=== PATIENT | female | born 1960 | race Caucasian/White ===

== ENCOUNTER 2018-07-06 21:17 | Emergency (ER) | payer OTHER ==
[2018-07-06] MEDS: ONDANSETRON 4 MG INJ IV (22:20)
[2018-07-06] MEDS: DEXAMETHASONE 10 MG/ML 1 ML INJ IV (22:20)
== END 2018-07-06 22:59 | disposition home or self-care (01) ==
LOC: E/R 21:17
DX: L50.0 Allergic urticaria (principal)
CPT/HCPCS: 96374; 96375; 99284-25